=== PATIENT | male | born 2000 | race Hispanic/Latino ===

== ENCOUNTER 2019-01-19 00:52 | Emergency (ER) | payer BC ==
[2019-01-19 01:30] LABS: BASOPHILS % (AUTO) 0.5 % (0.0-5.0); EOSINOPHILS % (AUTO) 1.7 % (0.0-8.0); HEMATOCRIT 44.2 % (42-54); LYMPHOCYTES % (AUTO) 21.5 % (21.0-51.0); MEAN CORPUSCULAR HEMOGLOBIN 26.9 pg (27.0-33.0); MEAN CORPUSCULAR HGB CONC 33.8 g/dL (32.0-36.0); MEAN CORPUSCULAR VOLUME 79.7 fL (80-100); MONOCYTES % (AUTO) 5.8 % (3.0-13.0); NEUTROPHILS % (AUTO) 70.5 % (40.0-77.0); NUCLEATED RED BLOOD CELLS 0.1 % (0.0-0.19); PLATELET COUNT (AUTO) 318 K/uL (130-400); RED BLOOD CELL COUNT(AUTO) 5.55 MIL/uL (4.50-6.20); RED CELL DISTRIBUTION WIDTH 14.4 % (11.0-15.5); WHITE BLOOD COUNT (AUTO) 10.2 K/uL (4.8-10.8)
[2019-01-19 01:49] LABS: CREATININE 1.1 mg/dL (0.5-1.5); POTASSIUM 3.8 mmol/L (3.5-5.1)
[2019-01-19 01:51] LABS: INR 1.03 (0.85-1.15); PARTIAL THROMBOPLASTIN TIME 27.6 SEC (26.3-35.5); PROTHROMBIN TIME 10.8 SEC (9.6-11.6)
[2019-01-19 01:53] LABS: ALBUMIN 3.9 g/dL (3.5-5.0); BILIRUBIN,TOTAL 0.2 mg/dL (0.2-1.0); TOTAL PROTEIN, SERUM 7.2 g/dL (6.0-8.3)
[2019-01-19 01:54] LABS: APPEARANCE,URINE Clear (CLEAR); BILIRUBIN,URINE Negative (NEGATIVE); COLOR,URINE Yellow (YELLOW); GLUCOSE, URINE (UA) Negative (NEGATIVE); KETONES,URINE Negative (NEGATIVE); LEUKOCYTE ESTERASE ,URINE Negative (NEGATIVE); NITRATE,URINE Negative (NEGATIVE); OCCULT BLOOD,URINE Negative (NEGATIVE); PROTEIN,URINE Negative (NEGATIVE)
[2019-01-19 02:01] LABS: AMPHET/METH SCREEN,URINE NEGATIVE (NEGATIVE); BARBITURATE SCREEN, URINE NEGATIVE (NEGATIVE); BENZODIAZEPINES SCREEN,URINE NEGATIVE (NEGATIVE); CANNABINOID SCREEN,URINE NEGATIVE (NEGATIVE); COCAINE SCREEN,URINE NEGATIVE (NEGATIVE); OPIATE SCREEN,URINE NEGATIVE (NEGATIVE); PHENCYCLIDINE SCREEN,URINE NEGATIVE (NEGATIVE)
[2019-01-19] MEDS ORDERED: FAMOTIDINE 20MG TAB 20 MG TAB ONE (02:12)
[2019-01-19] MEDS ORDERED: HYOSCYAMINE SULFATE 0.125 MG TAB.SUBL SL ONE (02:12)
[2019-01-19] MEDS ORDERED: SUCRALFATE 1 GM TABLET ONE (04:20)
== END 2019-01-19 04:52 | disposition home or self-care (01) ==
LOC: EDH 00:52
DX: R07.2 Precordial pain (principal); R05 Cough; R09.81 Nasal congestion; Z72.0 Tobacco use
CPT/HCPCS: 36415; 71046; 80053; 80305; 81003; 82550; 83690; 84484; 85025; 85610; 85730; 87804; 93005; 96374

== ENCOUNTER 2024-03-25 17:11 | Emergency (ER) | payer BC, OTHER ==
[~2024-03-25] VITALS: Ht 188 cm; Wt 136.1 kg
[2024-03-25] MEDS: LACTATED RINGERS 1000ML 1,000 ML IV ONE (17:44)
[2024-03-25] MEDS: MORPHINE 2 MG SYG IVP ONE (17:46)
[2024-03-25] MEDS: ONDANSETRON 4MG INJ IVP ONE (17:46)
[2024-03-25 18:25] LABS: BASOPHILS # (AUTO) 0.04 K/uL (0.00-0.20); BASOPHILS % (AUTO) 0.4 % (0.0-5.0); HEMATOCRIT 46.3 % (42-54); IMMATURE GRANULOCYTE ABSOLUTE 0.04 K/uL (0-1); LYMPHOCYTES # (AUTO) 1.9 K/uL (1.0-4.8); LYMPHOCYTES % (AUTO) 18.2 % (21.0-51.0); MEAN CORPUSCULAR HEMOGLOBIN 27.6 pg (27.0-33.0); MEAN CORPUSCULAR HGB CONC 33.7 g/dL (32.0-36.0); MEAN CORPUSCULAR VOLUME 81.9 fL (79-99); MONOCYTES # (AUTO) 0.9 K/uL (0.1-1.0); MONOCYTES % (AUTO) 8.8 % (3.0-13.0); NEUTROPHILS # (AUTO) 7.4 K/uL (1.8-7.7); NEUTROPHILS % (AUTO) 71.2 % (40.0-77.0); PLATELET COUNT (AUTO) 373 K/uL (130-400); RED BLOOD CELL COUNT(AUTO) 5.65 MIL/uL (4.50-6.20); RED CELL DISTRIBUTION WIDTH 12.5 % (11.0-15.5); WHITE BLOOD COUNT (AUTO) 10.4 K/uL (4.8-10.8)
[2024-03-25 18:33] LABS: CARBON DIOXIDE 26 mmol/L (21-32); CHLORIDE 100 mmol/L (101-111); CREATININE 1.5 mg/dL (0.5-1.3); GLOMERULAR FILTR. RATE CALC 66 mL/min (>90); GLUCOSE,RANDOM 119 mg/dL (70-105); POTASSIUM 3.5 mmol/L (3.5-5.1); SODIUM SERUM 137 mmol/L (136-145); UREA NITROGEN, BLOOD 12 mg/dL (7-18)
[2024-03-25 18:34] LABS: INR 0.95 (0.85-1.15); PROTHROMBIN TIME 11.2 SEC (9.6-11.6)
[2024-03-25 18:35] LABS: PARTIAL THROMBOPLASTIN TIME 25.1 SEC (26.3-35.5)
[2024-03-25 18:38] LABS: ALANINE AMINOTRANSFERASE 37 U/L (12-78); ALBUMIN 4.4 g/dL (3.5-5.0); ALCOHOL, BLOOD < 3 mg/dL (0-10); ASPARTATE AMINOTRANSFERASE 27 U/L (10-37); BILIRUBIN,TOTAL 0.3 mg/dL (0.2-1.0); TOTAL PROTEIN, SERUM 8.6 g/dL (6.0-8.3)
[2024-03-25] MEDS ORDERED: HYDR-4060 PO (20:24)
[2024-03-25] MEDS: BACITRACIN 1 EACH PACKET TP ONE (20:36)
[2024-03-25 21:00] VITALS: BP 122/82; PULSE 86; RESP 16; O2SAT 100
== END 2024-03-25 21:06 | disposition home or self-care (01) ==
LOC: EDH 17:11
DX: S42.001A Fracture of unspecified part of right clavicle, initial encounter for closed fracture (principal); Z98.890 Other specified postprocedural states; V89.2XXA Person injured in unspecified motor-vehicle accident, traffic, initial encounter; Y93.I9 Activity, other involving external motion; Y92.89 Other specified places as the place of occurrence of the external cause; Y99.8 Other external cause status
CPT/HCPCS: 99285; 70450; 96374; 71045; 96361; 96375; 80053; 85025; 85610; 85730; 86850; 86900; 86901; 36415; 73000; 73060; 73562; 72170; 73030; 72125; 71250; 74176; J7120; J2270; J2405